=== PATIENT | female | born 1975 ===

== ENCOUNTER 2019-08-28 07:53 | Outpatient (CLI) | payer OTHER | END 2019-08-28 07:58 | disposition home or self-care (01) | LOC: SONOGRAMA 07:53 → MAMO-SONO 13:15 | DX: N91.0 Primary amenorrhea (principal) ==

== ENCOUNTER 2019-11-19 08:27 | Outpatient (CLI) | payer OTHER | END 2019-11-19 08:37 | disposition home or self-care (01) | LOC: RAD 08:27 | DX: M75.22 Bicipital tendinitis, left shoulder (principal) ==

== ENCOUNTER 2025-01-22 11:46 | Outpatient (CLI) | payer OTHER | END 2025-01-22 11:54 | disposition home or self-care (01) | LOC: SONOGRAMA 11:46 | PROVIDERS: ATTEND Physical Medicine & Rehabilitation Hospice and Palliative Medicine | DX: M25.511 Pain in right shoulder (principal); M75.31 Calcific tendinitis of right shoulder ==